=== PATIENT | female | born 1975 | race Caucasian/White ===

== ENCOUNTER → 2016-11-05 | Outpatient (CLI) | payer OTHER ==
--- NOTE | ~2016-11-05 | ECHO ---
Transthoracic Echocardiography Report (TTE) Demographics Patient Name JULIETH LADD, Date of Study 11/05/2016 SAMM Vargas Patient Number [id number] Visit Number [id number] Date of 1975 Room Number Gender Female Number Age 41 year(s) Referring Donna Simeon MD Sales Trader Cecelia Feliep RVT, Physician Josey Bray MD RD Physician Interpreting Donna Simeon MD Fashion Designer Physician Supervising Ordering Donna Simeon MD, MD/MLP Physician Nurse Stress Tactical [employer] Control Party Manager Conclusions Contractility Score Summary Normal Left Ventricular contractility was noted. Summary The estimated left ventricular ejection fraction is 60-65%. The left ventricle is normal in size . Diastolic assessment reveals normal relaxation. The right atrium is mildly dilated. Dilated IVC with poor inspiratory collapse consistent with elevated RA pressure. Mild tricuspid regurgitation by color Doppler. There is mild pulmonary hypertension. The pulmonary pressure (RVSP) is 36 mmHg. Procedure Type of Study TTE procedure:2D Echocardiogram. Procedure Date Date: 11/05/2016 Start: 02:26 PM Study Location: Echo Lab Technical Quality: Excellent Indications:Abnormal ECG. Additional Indications:Pre-Medication Initiation Appropriate Use Criteria: 8 Patient Status: Routine Rhythm: NSR HR: 68 bpm BP: 122/80 mmHg M-Mode/2D Measurements LV Diastolic Dimension: 4.35 cm LV Systolic Dimension: 2.71 cm LV Septum Diastolic: 0.96 cm LV PW Diastolic: 0.92 cm AO Root Dimension: 2.4 cm Cardiac Output: 4.37 l/min AV Cusp Separation: 2.1 cm RV Diastolic Dimension: 3.37 cm LA volume: 47 ml LVOT: 1.9 cm RV Base: 3.23 cm LVOT VTI: 22.7 cm RV Mid: 2.05 cm LV Stroke volume: 64.33 ml TAPSE: 2.66 cm Doppler Measurements AV Peak Velocity: 1.29 m/s MV Peak E-Wave: 0.59 m/s AV Peak Gradient: 6.66 mmHg MV Peak A-Wave: 0.33 m/s AV Mean Gradient: 4 mmHg MV E/A Ratio: 1.81 LVOT Peak Velocity: 1.14 m/s MV P1/2t: 82 msec TR Gradient:21.16 mmHg PV Peak Velocity: 0.82 m/s Estimated RAP:15 mmHg PV Peak Gradient: 2.69 mmHg Estimated RVSP: 36 mmHg Estimated PASP: 36.16 mmHg E' Septal Velocity: 0.13 m/s A' Septal Velocity: 0.08 m/s E' Lateral Velocity: 0.14 m/s A' Lateral Velocity: 0.08 m/s Findings Left Ventricle The left ventricle is normal in size . Diastolic assessment reveals normal relaxation. Right Ventricle Normal right ventricle structure and function. Left Atrium Normal left atrial size. There is no evidence of patent foramen ovale or atrial septal defect by color Doppler. Right Atrium The right atrium is mildly dilated. Dilated IVC with poor inspiratory collapse consistent with elevated RA pressure. Mitral Valve Trivial mitral regurgitation by color Doppler. Aortic Valve Normal aortic valve structure and function. Tricuspid Valve Mild to moderate tricuspid regurgitation by color Doppler. There is mild pulmonary hypertension. The pulmonary pressure (RVSP) is 36 mmHg. Pulmonic Valve Normal pulmonic valve structure and function. Pericardial Effusion No evidence of pericardial effusion. Miscellaneous Visualized portions of the aortic root and ascending aorta appear normal in size. Pleural Effusion No evidence of pleural effusion. Contractility Score LV regional wall motion:(0-Non visualized 1-Normal 2-Hypokinesis 3-Akinesis 4-Dyskinesis 5-Aneurysm) Signature dtt: Blanco Thompson (cardio) dtd: 11/05/16 1426 Physician Self Edit
== END | disposition disaster alternative care site (69) ==
LOC: GCAR 14:16
DX: Z51.81 Encounter for therapeutic drug level monitoring (principal); I72.9 Aneurysm of unspecified site; I07.1 Rheumatic tricuspid insufficiency; I27.2 Other secondary pulmonary hypertension